=== PATIENT | male | born 1960 | race Two or more races ===

== ENCOUNTER 2024-10-16 08:25 | Inpatient (IN) | payer OTHER, MEDICAID ==
[~2024-10-16] VITALS: Ht 170.2 cm; Wt 95.5 kg
--- NOTE | 2024-10-16 08:54 | ECG ---
[facility] Test Date: 2024-10-16 Test Time: 08:43:49 Pat Name: BERYL BARONE Department: er Room: 0287 Gender: M Cleaning Machine Operator: gp : 1960 Requested By: MONICA KWON Order Number: [id number] Reading MD: Billy Che Measurements Intervals [place] Rate: 66 P: 51 MN: 138 QRS: -8 QRSD: 106 T: 1 QT: 407 QTc: 427 Interpretive Statements Sinus rhythm Low voltage, precordial leads Minimal ST elevation, anterior leads Baseline wander in lead(s) II,III,aVF,V2,V3 Electronically Signed On 10-17-2024 20:53:48 PDT by Billy Che Please click the below link to view image of tracing.
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
[2024-10-16 10:07] LABS: Basophils # (auto) 0 10 ^3/uL (0-0.2); Basophils % (auto) 0.3 % (0.0-2.0); Eosinophils # (auto) 0.1 10 ^3/uL (0-0.8); Eosinophils % (auto) 0.7 % (0.0-7.0); Hematocrit 40.9 % (41.0-53.0); Hemoglobin 13.9 g/dL (13.5-17.5); Lymphocytes % (auto) 11.8 % (10.0-50.0); Mean Corpuscular Hemoglobin 29.8 pg (28.0-32.0); Mean Corpuscular Hgb Conc. 33.9 g/dL (32.0-36.0); Mean Corpuscular Volume 87.8 fL (80.0-100.0); Monocytes # (auto) 0.6 10 ^3/uL (0-1.3); Monocytes % (auto) 6.8 % (0.0-12.0); Neutrophils # (auto) 6.9 10 ^3/uL (1.6-8.6); Neutrophils % (auto) 80.4 % (37.0-80.0); Platelet Count (auto) 198 10^3/uL (140-450); Red Blood Cells 4.65 10^6/uL (4.5-5.90); White Blood Cell 8.6 10^3/uL (4.4-10.8)
[2024-10-16 10:21] LABS: Chloride 105 mmol/L (98-107); Potassium 4.2 mmol/L (3.5-5.1); Sodium 136 mmol/L (136-145)
[2024-10-16 10:22] LABS: Anion Gap 8 (5-15); Carbon Dioxide 23 mmol/L (20-31)
[2024-10-16 10:23] LABS: Calcium 9.8 mg/dL (8.7-10.4)
[2024-10-16 10:27] LABS: BUN/Creatinine Ratio 13.7 (10.0-20.0); Blood Urea Nitrogen 13 mg/dL (9-23)
[2024-10-16 10:28] LABS: Glucose 123 mg/dL (74-106)
[2024-10-16] MEDS ORDERED: ONDANSETRON HCL 4 MG/2 ML VIAL IV PRN (18:45)
[2024-10-16] MEDS ORDERED: HYDROcodone-ACET 5/325MG TAB PO PRN (18:45)
[2024-10-16] MEDS ORDERED: ACETAMINOPHEN 325 MG TAB PO PRN (18:45)
--- NOTE | 2024-10-16 19:24 | DVH ---
Exam: CT CT AB PEL WO CON-NO ORAL OR IV History: abd. pain Comparison Study: None TECHNIQUE: Multidetector CT of the abdomen and pelvis was performed from lung bases to pubic symphysi s. Imaging was performed without IV contrast. Axial, coronal, and sagittal multiplanar reformats were obtained from the axial data set by the technologist. RADIATION DOSE: DLP 1214.8 mGy.cm; CTDI vol 25.04 mGy. Findings: Lungs: The lung bases are clear. Heart: No cardiomegaly or pericardial effusion. Liver: Unremarkable. Gallbladder: Cholecystectomy. Spleen: Unremarkable Pancreas: Unremarkable Adrenals: Unremarkable Kidneys: Unremarkable GI tract: Unremarkable : Unremarkable. Vasculature: Unremarkable Lymphadenopathy: Absent Peritoneum: No ascites Musculoskeletal: Mild multilevel degenerative changes of the thoracolumbar spine. Soft tissues: Small bilateral fat containing inguinal hernias. Impression: 1. No acute abdominopelvic abnormalities.
[2024-10-16 19:58] LABS: Albumin 4.7 g/dL (3.2-4.8); Alkaline Phosphatase 75 U/L (46-116); Anion Gap 8 (5-15); BUN/Creatinine Ratio 19.5 (10.0-20.0); Blood Urea Nitrogen 17 mg/dL (9-23); Calcium 9.5 mg/dL (8.7-10.4); Carbon Dioxide 27 mmol/L (20-31); Chloride 105 mmol/L (98-107); Potassium 3.8 mmol/L (3.5-5.1); Sodium 140 mmol/L (136-145); Total Protein 7.2 g/dL (5.7-8.2)
[2024-10-16 19:59] LABS: Bilirubin, Total 0.3 mg/dL (0.2-1.0)
[2024-10-16 20:00] LABS: Alanine Aminotransferase 41 U/L (7-40); Aspartate Aminotransferase 43 U/L (13-40); Glucose 63 mg/dL (74-106)
[2024-10-17] VITALS (7 sets, daily range): BP systolic 124–133; BP diastolic 71–88; PULSE 55–74; RESP 16–20; TEMP 97.4–98.7; O2SAT 96–98
--- NOTE | 2024-10-17 00:47 | DVHHP2 ---
History of Present Illness Reason for Visit: Abdominal pain History of Present Illness 64-year-old male presents for evaluation of abdominal pain. Patient reports right lower quadrant abdominal pain that is sharp in nature with associated bloating. Denies nausea or vomiting. No fever or chills. No diarrhea or constipation. Past Medical History BPH, dyslipidemia Past Surgical History Denies Family History Noncontributory Smoke: No ALCOHOL: none Drugs: None Lives: with Family Review of Systems Review of Systems Review of systems are currently negative otherwise addressed in HPI. Allergies: Coded Allergies: NO KNOWN ALLERGIES (Unverified , 10/16/24) Medications Current Medications Medications Dose Ordered Sig/Merissa Route Start Time Stop Time Status Last Admin Dose Admin Acetaminophen/ Hydrocodone Bitart 1 tab Q4HP PRN PO 10/16/24 18:45 Ondansetron HCl 4 mg Q4HP PRN IV 10/16/24 18:45 Acetaminophen 650 mg Q6HP PRN PO 10/16/24 18:45 Pantoprazole Sodium 40 mg DAILY@0600 PO 10/17/24 06:00 Exam Vital Signs Vital Signs Date Time Temp Pulse Resp B/P (MAP) Pulse Ox O2 Delivery O2 Flow Rate FiO2 10/16/24 10:40 97.7 64 15 142/71 (94) 97 97.7 Exam Gen: 64-year-old male in mild distress Skin: Warm, dry, normal color and texture, no rash. HEENT: Normocephalic atraumatic, mucous membranes moist and pink. Neck: Cervical and supraclavicular nodes normal without enlargement, trachea is midline, thyroid gland is normal without masses. Pulmonary: Clear to auscultation and percussion bilaterally. Cardiac: Regular rate and rhythm. No murmur Abdomen: Soft, right lower quadrant tenderness, nondistended, bowel sounds present all 4 quadrants, no guarding, no rigidity, no organomegaly. Extremities: No cyanosis, clubbing, no edema Neuro: Cranial nerves II through XII grossly intact, normal affect and speech, no focal motor deficits. Labs/Xrays ORDERING PHYSICIAN: RIAN GATES PROCEDURE(s): ABPL - CT AB PEL WO CON-NO ORAL OR IV REASON: abd. pain ORDER NUMBER(s): [id number], ACCESSION NUMBER(s): [id number] Exam: CT CT AB PEL WO CON-NO ORAL OR IV History: abd. pain Comparison Study: None TECHNIQUE: Multidetector CT of the abdomen and pelvis was performed from lung bases to pubic symphysis. Imaging was performed without IV contrast. Axial, coronal, and sagittal multiplanar reformats were obtained from the axial data set by the technologist. RADIATION DOSE: DLP 1214.8 mGy.cm; CTDI vol 25.04 mGy. Findings: Lungs: The lung bases are clear. Heart: No cardiomegaly or pericardial effusion. Liver: Unremarkable. Gallbladder: Cholecystectomy. Spleen: Unremarkable Pancreas: Unremarkable Adrenals: Unremarkable Kidneys: Unremarkable GI tract: Unremarkable : Unremarkable. Vasculature: Unremarkable Lymphadenopathy: Absent Peritoneum: No ascites Musculoskeletal: Mild multilevel degenerative changes of the thoracolumbar spine. Soft tissues: Small bilateral fat containing inguinal hernias. Impression: 1. No acute abdominopelvic abnormalities. Labs Test 10/16/24 19:01 10/16/24 09:39 Range/Units Sodium Level 140 136-145 mmol/L Potassium Level 3.8 3.5-5.1 mmol/L Chloride Level 105 98-107 mmol/L Carbon Dioxide Level 27 20-31 mmol/L Anion Gap 8 5-15 Blood Urea Nitrogen 17 9-23 mg/dL Creatinine 0.87 0.700-1.30 mg/dL Glomerular Filtration Rate Calc 96 >90 mL/min BUN/Creatinine Ratio 19.5 10.0-20.0 Serum Glucose 63 L 74-106 mg/dL Calcium Level 9.5 8.7-10.4 mg/dL Total Bilirubin 0.3 0.2-1.0 mg/dL Aspartate Amino Transferase (AST) 43 H 13-40 U/L Alanine Aminotransferase (ALT) 41 H 7-40 U/L Alkaline Phosphatase 75 46-116 U/L Total Protein 7.2 5.7-8.2 g/dL Albumin 4.7 3.2-4.8 g/dL White Blood Count 8.6 4.4-10.8 10^3/uL Red Blood Count 4.65 4.5-5.90 10^6/uL Hemoglobin 13.9 13.5-17.5 g/dL Hematocrit 40.9 L 41.0-53.0 % Mean Corpuscular Volume 87.8 80.0-100.0 fL Mean Corpuscular Hemoglobin 29.8 28.0-32.0 pg Mean Corpuscular Hemoglobin Concent 33.9 32.0-36.0 g/dL Red Cell Distribution Width 14.0 11.8-14.3 % Platelet Count 198 140-450 10^3/uL Mean Platelet Volume 6.9 6.9-10.8 fL Neutrophils (%) (Auto) 80.4 H 37.0-80.0 % Lymphocytes (%) (Auto) 11.8 10.0-50.0 % Monocytes (%) (Auto) 6.8 0.0-12.0 % Eosinophils (%) (Auto) 0.7 0.0-7.0 % Basophils (%) (Auto) 0.3 0.0-2.0 % Neutrophils # (Auto) 6.9 1.6-8.6 10 ^3/uL Lymphocytes # (Auto) 1.0 0.4-5.4 10 ^3/uL Monocytes # (Auto) 0.6 0-1.3 10 ^3/uL Eosinophils # (Auto) 0.1 0-0.8 10 ^3/uL Basophils # (Auto) 0 0-0.2 10 ^3/uL Nucleated Red Blood Cells 0.0 % Troponin I High Sensitivity < 3 L </=54 ng/L Assessment/Plan Assessment/Plan Assessment Acute abdominal pain Plan Admit the patient to [facility] [place] to the hospitalist Clear liquid diet GI consultation Pain management Continue treatment per orders. Plan discussed with: Patient My Orders Orders - RIAN GATES AGACNP Procedure Category Date Status Time Ct Ab Pel Wo Con-No CT 10/16/24 Resulted Oral Or Iv 18:43 Basic Metabolic Panel LAB 10/17/24 Logged 04:00 Urinalysis LAB 10/16/24 Logged 18:44 Admit ADMIT 10/16/24 Transmitted 18:44 Hydrocodone-Acet PHA 10/16/24 In Process 5/325mg Tab ([place] 18:45 Ondansetron Hcl PHA 10/16/24 In Process (Zofran) 18:45 Condition: Stable ROMERO 10/16/24 In Process 18:44 Acetaminophen Tablet PHA 10/16/24 In Process (Tylenol Tablet) 18:45 Clear Liq Diet DIET 10/17/24 Transmitted Breakfast Bedrest With Bathroom ROMERO 10/16/24 In Process Privileg 18:44 Pantoprazole Tablet PHA 10/17/24 In Process (Protonix Tablet) 06:00 * Gi Dvh [employer] CONS 10/17/24 Transmitted 00:39 Date of Service: Oct 16, 2024 Billing Provider: RIAN GATES Common Visit Codes: [id number] INP/OBS CARE (MOD) RIAN GATES Oct 17, 2024 00:47
[2024-10-17] MEDS: PANTOPRAZOLE 40 MG TAB PO ONE (01:48)
[2024-10-17] MEDS: PANTOPRAZOLE 40 MG TAB PO SCH (05:40)
[2024-10-17 06:36] LABS: Chloride 106 mmol/L (98-107); Potassium 3.9 mmol/L (3.5-5.1); Sodium 139 mmol/L (136-145)
[2024-10-17 06:37] LABS: Anion Gap 7 (5-15); Calcium 9.1 mg/dL (8.7-10.4); Carbon Dioxide 26 mmol/L (20-31)
[2024-10-17 06:42] LABS: BUN/Creatinine Ratio 15.8 (10.0-20.0); Blood Urea Nitrogen 15 mg/dL (9-23); Glucose 114 mg/dL (74-106)
--- NOTE | 2024-10-17 13:33 | DVHDS2 ---
Discharge Summary Date of Admission Oct 16, 2024 at 18:44 Date of Discharge: Oct 17, 2024 Admitting Diagnosis Abdominal pain Labs/Diagnostic Data: Laboratory Results Test 10/17/24 04:13 10/16/24 19:01 10/16/24 09:39 Sodium Level 139 mmol/L (136-145) Potassium Level 3.9 mmol/L (3.5-5.1) Chloride Level 106 mmol/L (98-107) Carbon Dioxide Level 26 mmol/L (20-31) Anion Gap 7 (5-15) Blood Urea Nitrogen 15 mg/dL (9-23) Creatinine 0.95 mg/dL (0.700-1.30) Glomerular Filtration Rate Calc 89 mL/min (>90) BUN/Creatinine Ratio 15.8 (10.0-20.0) Serum Glucose 114 mg/dL (74-106) Calcium Level 9.1 mg/dL (8.7-10.4) Total Bilirubin 0.3 mg/dL (0.2-1.0) Aspartate Amino Transferase (AST) 43 U/L (13-40) Alanine Aminotransferase (ALT) 41 U/L (7-40) Alkaline Phosphatase 75 U/L (46-116) Total Protein 7.2 g/dL (5.7-8.2) Albumin 4.7 g/dL (3.2-4.8) White Blood Count 8.6 10^3/uL (4.4-10.8) Red Blood Count 4.65 10^6/uL (4.5-5.90) Hemoglobin 13.9 g/dL (13.5-17.5) Hematocrit 40.9 % (41.0-53.0) Mean Corpuscular Volume 87.8 fL (80.0-100.0) Mean Corpuscular Hemoglobin 29.8 pg (28.0-32.0) Mean Corpuscular Hemoglobin Concent 33.9 g/dL (32.0-36.0) Red Cell Distribution Width 14.0 % (11.8-14.3) Platelet Count 198 10^3/uL (140-450) Mean Platelet Volume 6.9 fL (6.9-10.8) Neutrophils (%) (Auto) 80.4 % (37.0-80.0) Lymphocytes (%) (Auto) 11.8 % (10.0-50.0) Monocytes (%) (Auto) 6.8 % (0.0-12.0) Eosinophils (%) (Auto) 0.7 % (0.0-7.0) Basophils (%) (Auto) 0.3 % (0.0-2.0) Neutrophils # (Auto) 6.9 10 ^3/uL (1.6-8.6) Lymphocytes # (Auto) 1.0 10 ^3/uL (0.4-5.4) Monocytes # (Auto) 0.6 10 ^3/uL (0-1.3) Eosinophils # (Auto) 0.1 10 ^3/uL (0-0.8) Basophils # (Auto) 0 10 ^3/uL (0-0.2) Nucleated Red Blood Cells 0.0 % Troponin I High Sensitivity < 3 ng/L (</=54) Other Laboratory Tests 10/17/24 04:13 10/16/24 09:39 Brief Hx & Hospital Course: History of Present Illness 64-year-old male presents for evaluation of abdominal pain. Patient reports right lower quadrant abdominal pain that is sharp in nature with associated bloating. Denies nausea or vomiting. No fever or chills. No diarrhea or constipation. Course of hospitalization: GI consultation was obtained. Patient has been cleared for discharge from their standpoint. CT scan of the abdomen and pelvis was performed which was unremarkable. Patient was states that his pain has resolved. Given the patient's pain is located in his right lower quadrant, patient will have right lower quadrant ultrasound to rule out an appendicitis. Once appendicitis ruled out patient to be discharged home. Right lower quadrant abdominal pain probably secondary to noted bilateral inguinal hernia. Physical examination General: Alert and Oriented x3. No acute distress. Well-nourished. Obese Eyes: EOMI. Anicteric. HENT: Moist mucous membranes. Lungs: Clear to auscultation bilaterally. No accessory muscle use. Cardiovascular: Regular rate and rhythm. No murmur. No JVD. Abdomen: Soft, non-tender and non-distended. No palpable masses. Extremities: No edema. Non-tender. Skin: No rashes or lesions. Warm. Neurologic: No focal neurological deficits. CN II-XII grossly intact, but not individually tested. Psychiatric: Cooperative. Appropriate mood and affect. Total time spent with patient discussing and formulating plan of care: 35 minutes. This medical document was created using an electronic medical record system with Gatheredtable dictation system. Although this document has been carefully reviewed, there may still be some phonetic and typographical errors. These areas are purely typographical due to imperfections of the software programs, and do not reflect any compromise in the patient's medical care. Consults/Reason for consult Gastroenterology: Abdominal pain Condition at Discharge: Fair Final Diagnosis/Problems List Abdominal pain, probably secondary to inguinal hernia Secondary diagnosis -obesity -BPH -dyslipidemia Discharge Disposition: Home Discharge Instruct/Medications Diet: Regular Activity: No Restrictions, As Tolerated Follow Up/Referral: Follow up with Gastroenterology in 3-4 weeks Follow up with PCP in 1-2 weeks Medications: Continue all previous home medications 36 Discharge Statement: "Patient was advised to return to the ER or call 911 if any headaches, dizziness, shortness of breath, chest pain, abdominal pain, bleeding, fevers, or worsening of medical condition. Patient was counseled about treatment plan, medications, possible side effects, patientverbalized understanding. All questions were answered to the best of my ability. This discharge took greater then 30 minutes in planning, reviewing documentation, counseling the patient, and discussing with other team members." ASSESSMENT ASSESSMENT Assessment Date of Service: Oct 17, 2024 Billing Provider: ASHLEY ACEVEDO NP Common Visit Codes: 94903-KHI/OBS DISCH DAY >30min ASHLEY ACEVEDO NP Oct 17, 2024 13:33
--- NOTE | 2024-10-17 14:32 | DVHINCON2 ---
GI Consult Consult Note GI consult note Date of Consultation: 10/17/2024 Chief Complaint: Abdominal pain Referring Physician: Jonathan OLIVERA H&P: 64-year-old male presents to ER with complains of abdominal pain Patient complains of right-sided abdominal pain for one day. Patient pain is improving at this time No nausea or vomiting. No weight loss Last bowel movement this morning, no melena or red blood in stool Status post colonoscopy two years ago, recommended three year follow-up colonoscopy per patient. Unsure about results of colonoscopy Past Medical History: BPH, dyslipidemia Past Surgical History: Denies Social History: NO smoking, drinking ETOH and use of illegal drugs. Family History: Noncontributory Review of Systems: Constitutional: no fever, chill, weight loss HEENT: no eye pain, no hearing loss, no oral lesion, no scleral icterus Heart: no chest pain, no chest pressure Lung: no cough, no dyspnea with exertion Abdomen: see HPI Physical exam: General: NAD, AAOX3 Chest: lung astorga clear to auscultation Heart: RRR, no murmur Abdomen: non-distended, no tenderness to palpation, +BS Labs: Labs Test 10/17/24 04:13 10/16/24 19:01 10/16/24 09:39 Range/Units Sodium Level 139 136-145 mmol/L Potassium Level 3.9 3.5-5.1 mmol/L Chloride Level 106 98-107 mmol/L Carbon Dioxide Level 26 20-31 mmol/L Anion Gap 7 5-15 Blood Urea Nitrogen 15 9-23 mg/dL Creatinine 0.95 0.700-1.30 mg/dL Glomerular Filtration Rate Calc 89 >90 mL/min BUN/Creatinine Ratio 15.8 10.0-20.0 Serum Glucose 114 H 74-106 mg/dL Calcium Level 9.1 8.7-10.4 mg/dL Total Bilirubin 0.3 0.2-1.0 mg/dL Aspartate Amino Transferase (AST) 43 H 13-40 U/L Alanine Aminotransferase (ALT) 41 H 7-40 U/L Alkaline Phosphatase 75 46-116 U/L Total Protein 7.2 5.7-8.2 g/dL Albumin 4.7 3.2-4.8 g/dL White Blood Count 8.6 4.4-10.8 10^3/uL Red Blood Count 4.65 4.5-5.90 10^6/uL Hemoglobin 13.9 13.5-17.5 g/dL Hematocrit 40.9 L 41.0-53.0 % Mean Corpuscular Volume 87.8 80.0-100.0 fL Mean Corpuscular Hemoglobin 29.8 28.0-32.0 pg Mean Corpuscular Hemoglobin Concent 33.9 32.0-36.0 g/dL Red Cell Distribution Width 14.0 11.8-14.3 % Platelet Count 198 140-450 10^3/uL Mean Platelet Volume 6.9 6.9-10.8 fL Neutrophils (%) (Auto) 80.4 H 37.0-80.0 % Lymphocytes (%) (Auto) 11.8 10.0-50.0 % Monocytes (%) (Auto) 6.8 0.0-12.0 % Eosinophils (%) (Auto) 0.7 0.0-7.0 % Basophils (%) (Auto) 0.3 0.0-2.0 % Neutrophils # (Auto) 6.9 1.6-8.6 10 ^3/uL Lymphocytes # (Auto) 1.0 0.4-5.4 10 ^3/uL Monocytes # (Auto) 0.6 0-1.3 10 ^3/uL Eosinophils # (Auto) 0.1 0-0.8 10 ^3/uL Basophils # (Auto) 0 0-0.2 10 ^3/uL Nucleated Red Blood Cells 0.0 % Troponin I High Sensitivity < 3 L </=54 ng/L Imaging: CT abdomen pelvis Impression: 1. No acute abdominopelvic abnormalities. Assessment: Abdominal pain improving Plan: Discussed with Dr. Hinkle Advance diet as tolerated Recommend outpatient GI follow-up for elective procedures as needed Discussed plan with patient and RN Thank you for this consult Date of Service: Oct 17, 2024 Billing Provider: VERONICA RUTHERFORD Common Visit Codes: CONSULT ONLY Consultation Codes: [id number] CONSULT <45MIN VERONICA RUTHERFORD Oct 17, 2024 14:32
--- NOTE | 2024-10-17 14:39 | DVH ---
INDICATION: Rule out Appendicitis TECHNIQUE: Graded compression technique along with Multiple real-time sonographic images were obtain ed for evaluation of the right lower quadrant. FINDINGS: The appendix was not visualized. No free fluid or lymph nodes are seen on this exam. IMPRESSION: 1.Nonvisualization of the appendix, thus cannot exclude appendicitis.
== END 2024-10-17 16:00 | disposition home or self-care (01) | DRG 395 ==
LOC: ER 08:25 → OVERFLOW 18:44 → WEST WING 10-17 04:50
PROVIDERS: ADMIT Nurse Practitioner Acute Care; ATTEND Nurse Practitioner Acute Care
DX: K40.20 Bilateral inguinal hernia, without obstruction or gangrene, not specified as recurrent (principal); N40.0 Benign prostatic hyperplasia without lower urinary tract symptoms; E66.9 Obesity, unspecified; E78.5 Hyperlipidemia, unspecified; K52.9 Noninfective gastroenteritis and colitis, unspecified; Z87.11 Personal history of peptic ulcer disease; Z68.33 Body mass index [BMI] 33.0-33.9, adult; Z79.899 Other long term (current) drug therapy
CPT/HCPCS: 36415; 74176; 76705; 80048; 80053; 84484; 85025; 93005; G0378